=== PATIENT | female | born 1965 | race Caucasian/White ===

== ENCOUNTER 2018-10-03 07:57 | Outpatient (CLI) | payer OTHER ==
--- NOTE | 2018-10-03 08:21 | ULT ---
RIGHT UPPER QUADRANT ULTRASOUND CLINICAL HISTORY: Right upper quadrant abdominal pain. COMPARISON: None. FINDINGS: Liver:The liver parenchyma is diffusely fatty Bile ducts: No intrahepatic or extrahepatic biliary dilation.; common bile duct: 0.39cm Gallbladder: Normal appearing. Lott's sign:None Main portal vein:Patent with hepatopedal flow. Pancreas: Visualized pancreas appears normal. Right kidney: No pelvicalyceal dilatation. Right kidney measuring 10.6 x 5.1 x 4.4 cm in length. Additional findings: None. IMPRESSION: 1. Fatty infiltration of the liver. 2. No additional acute sonographic abnormality within the right upper quadrant.
== END 2018-10-03 07:58 | disposition home or self-care (01) ==
LOC: SCSULT 07:57
PROVIDERS: ATTEND Internal Medicine
DX: R10.11 Right upper quadrant pain (principal); K76.0 Fatty (change of) liver, not elsewhere classified
CPT/HCPCS: 76705

== ENCOUNTER 2018-10-31 08:53 | Outpatient (CLI) | payer OTHER ==
--- NOTE | 2018-11-02 15:33 | MMO ---
Bilateral MAMMO Bilat Screen [facility]. CLINICAL HISTORY: Patient is 53 years old and is seen for screening. The patient has no family history of breast cancer. The patient has no personal history of cancer. VIEWS: The views performed were: bilateral craniocaudal with tomosynthesis and bilateral mediolateral oblique with tomosynthesis. FILMS COMPARED: The present examination has been compared to prior imaging studies performed at [facility] on 03/29/2007 and 10/14/2011, and at [facility] on 11/19/2016. MAMMOGRAM FINDINGS: The breasts are heterogeneously dense, which could obscure a lesion on mammography. There are no suspicious masses, suspicious calcifications, or new areas of architectural distortion. IMPRESSION: THERE IS NO MAMMOGRAPHIC EVIDENCE OF MALIGNANCY. A ROUTINE FOLLOW-UP MAMMOGRAM IN 1 YEAR IS RECOMMENDED. THE RESULTS OF THIS EXAM WERE SENT TO THE PATIENT. ACR BI-RADS Category 1 - Negative MAMMOGRAPHY NOTE: 1. A negative mammogram report should not delay a biopsy if a dominant of clinically suspicious mass is present. 2. Approximately 10% to 15% of breast cancers are not detected by mammography. 3. Adenosis and dense breasts may obscure an underlying neoplasm. Reported by: KELLIE RASHEED MD Electonically Signed: [id number]
== END 2018-10-31 08:54 | disposition home or self-care (01) ==
LOC: BICMAMMO 08:53
PROVIDERS: ATTEND Internal Medicine
DX: Z12.31 Encounter for screening mammogram for malignant neoplasm of breast (principal)
CPT/HCPCS: 77063; 77067

== ENCOUNTER 2018-11-28 06:55 | Day surgery (SDC) | payer OTHER ==
[2018-11-27 12:36] VITALS: BMI 25.0
--- NOTE | 2018-11-28 01:05 | HP ---
HISTORY OF PRESENT ILLNESS: This is a 53-year-old female comes for a colonoscopy for colon cancer screening. The patient has history of constipation. The patient has no family history of colon cancer. The patient has abdominal pain, nausea, and vomiting. She is undergoing colonoscopy for colon cancer screening. SOCIAL HISTORY: The patient does not smoke or drink alcohol. MEDICAL ILLNESSES: 1. Hypertension. 2. Status post hysterectomy. PHYSICAL EXAMINATION: VITAL SIGNS: Pulse is 70, blood pressure 130/70. HEENT: Conjunctivae clear. NECK: Supple. CARDIOVASCULAR: First and second heart sounds heard. LUNGS: Clear to auscultation. ABDOMEN: Soft. No organomegaly. No tenderness. No masses. ADMITTING DIAGNOSIS: A 53-year-old female undergoing colonoscopy for colon cancer screening. Job ID: [id number] [facility]
--- NOTE | 2018-11-28 12:07 | OP ---
DATE OF PROCEDURE: 11/28/2018 PROCEDURE PERFORMED: Colonoscopy with polypectomy. PREOPERATIVE DIAGNOSIS: A 53-year-old female undergoing colonoscopy for colon cancer screening. POSTOPERATIVE DIAGNOSES: 1. Diffuse colonic diverticular disease from sigmoid colon all the way to the hepatic flexure, ascending colon. 2. Sessile polyp of sigmoid colon, status post snare cautery with good hemostasis. 3. Hemorrhoids. 4. Retained stool_in the colon ; however, over all prep is good. DESCRIPTION OF PROCEDURE: The patient was placed on her left lateral position and was given sedation by Anesthesia Department. A rectal exam was done before the scope was advanced into the rectum. No lesions felt on rectal exam. A Pentax video colonoscope was introduced into the rectum and advanced all the way into the cecum. The patient has some solid stool especially in the left colon . The mucosa appears normal throughout the colon with normal vascular pattern. She had redundant sigmoid colon. The appendicular opening, ileocecal valve, and cecum, no pathology seen. Withdrawal of scope in the cecum and ascending colon, no pathology seen. However, just around hepatic flexure and just past hepatic flexure, the ascending colon, she had diverticular disease. The transverse colon, splenic flexure, descending colon, sigmoid colon had scattered diverticular disease. She has small sessile sigmoid polyp removed with snare cautery with good hemostasis. Retroflexion of scope in the rectum show hemorrhoids. DISCHARGE PLANNING: This is a 53-year-old female referred to me by Dr. Donovan for a colonoscopy for colon cancer screening. She underwent colonoscopy with polypectomy. DISCHARGE RECOMMENDATIONS: 1. High-fiber diet. 2. She advised to take Metamucil 1 tablespoon once a day. 3. To call me if she develops abdominal pain, hematochezia, or fever. 4. Come back to clinic in 2 weeks. Job ID: [id number] [facility]
== END 2018-11-28 10:20 | disposition home or self-care (01) ==
LOC: SDC 06:55
PROVIDERS: ATTEND Internal Medicine Gastroenterology
PROC: 0DBN8ZZ Excision of Sigmoid Colon, Via Natural or Artificial Opening Endoscopic (ICD-10-PCS; principal; 2018-11-28)
DX: Z12.11 Encounter for screening for malignant neoplasm of colon (principal); K63.5 Polyp of colon; K57.30 Diverticulosis of large intestine without perforation or abscess without bleeding; K64.9 Unspecified hemorrhoids; I10 Essential (primary) hypertension
CPT/HCPCS: 88305

== ENCOUNTER 2018-12-21 11:45 | Emergency (ER) | payer OTHER ==
[2018-12-21 12:36] LABS: Bilirubin Negative (Negative); Blood, Urine 1+ (Negative); Clarity Clear (Clear); Glucose, Urine (Dipstick) Normal (Negative); Leukocyte 25 Leu/uL (Negative); Nitrite Negative (Negative); Protein, Urine (Dipstick) 50 mg/dL (Neg-Trace); RBC/HPF 21-50 HPF (0-3); Squamous Epithelial 0-3 HPF (0-3); Urobilinogen Greater than 12 mg/dL (Less than 2)
[2018-12-21 12:37] LABS: Bacteria/HPF 1+ HPF (None Seen)
[2018-12-21 12:40] LABS: #Lymphocytes 2.7 thou/uL (1.20-3.40); #Monocytes 1.4 thou/uL (0.11-0.59); %Basophils 0.2 % (0.0-1.0); %Eosinophils 0.2 % (0.0-10.0); %Lymphocytes 17.7 % (21.0-51.0); %Monocytes 9.5 % (0.0-10.0); %Neutrophils 72.4 % (42.0-75.0); Hemoglobin 10.8 g/dL (12.0-16.0); Mean Corpuscular HGB CONC 34.3 g/dL (32.0-36.0); Mean Corpuscular Hemoglobin 30.3 pg (27.0-31.0); Mean Corpuscular Volume 88.2 fL (78.0-98.0); Mean Platelet Volume 7.7 fL (7.4-10.4); Platelet Count 248 thou/uL (130-400); Red Blood Cell (RBC) Count 3.55 mill/uL (4.20-5.40); White Blood Cell (WBC) Count 15.2 thou/uL (4.8-10.8)
[2018-12-21 13:07] LABS: ALT (SGPT) 55 U/L (8-55); AST (SGOT) 53 U/L (5-34); Alkaline Phosphatase 134 U/L (40-110); Anion Gap 13 mmol/L (10-20); BUN (Urea Nitrogen) 7 mg/dL (9.8-20.1); Bilirubin, Total 0.3 mg/dL (0.2-1.2); Calc. Creatinine Clearance 0 mL/min (70-130); Calcium 9.1 mg/dL (7.8-10.44); Carbon Dioxide 27 mmol/L (22-29); Chloride 97 mmol/L (98-107); Estimated GFR-MDRD 71; Globulin 3.5 g/dL (2.4-3.5); Glucose 134 mg/dL (70-105); Potassium 3.8 mmol/L (3.5-5.1); Protein, Total 7.5 g/dL (6.0-8.3); Sodium 133 mmol/L (136-145)
[2018-12-21] MEDS ORDERED: cefTRIAXone\\ROCEPHIN 2 GM VIAL ONE (13:39)
== END 2018-12-21 14:28 | disposition home or self-care (01) ==
LOC: ERS 11:45
DX: N12 Tubulo-interstitial nephritis, not specified as acute or chronic (principal); I10 Essential (primary) hypertension; Z79.899 Other long term (current) drug therapy
CPT/HCPCS: 36415; 80053; 81003; 81015; 85025; 87040; 87086; 96361; 96365; J0696

== ENCOUNTER 2019-01-17 12:56 | Outpatient (CLI) | payer OTHER ==
--- NOTE | 2019-01-17 13:32 | ULT ---
Bilateral renal ultrasound CLINICAL INDICATION: UTI COMPARISON: None FINDINGS: Right kidney: No solid mass, or hydronephrosis. Left kidney: No solid mass, or hydronephrosis. Urinary bladder: Normal Incidental note of hepatic steatosis. IMPRESSION: No significant renal pathology.
== END 2019-01-17 12:57 | disposition home or self-care (01) ==
LOC: SCSULT 12:56
PROVIDERS: ATTEND Internal Medicine
DX: N39.0 Urinary tract infection, site not specified (principal); B96.20 Unspecified Escherichia coli [E. coli] as the cause of diseases classified elsewhere; N12 Tubulo-interstitial nephritis, not specified as acute or chronic
CPT/HCPCS: 76770

== ENCOUNTER 2020-05-01 09:09 | Emergency (ER) | payer OTHER, SELFPAY | END 2020-05-01 10:41 | disposition home or self-care (01) | LOC: ERS 09:09 | DX: U07.1 COVID-19 (principal); I10 Essential (primary) hypertension; Z79.899 Other long term (current) drug therapy | CPT/HCPCS: 99284 ==

== ENCOUNTER 2021-08-27 07:07 | Outpatient (CLI) | payer OTHER | END 2021-08-27 07:08 | disposition home or self-care (01) | LOC: BICULT 07:07 | PROVIDERS: ATTEND Nurse Practitioner Family | DX: R14.0 Abdominal distension (gaseous) (principal); R19.8 Other specified symptoms and signs involving the digestive system and abdomen; Z90.710 Acquired absence of both cervix and uterus | CPT/HCPCS: 76700; 76856; 93976 ==